=== PATIENT | female | born 1955 | race Caucasian/White ===

== ENCOUNTER 2018-02-07 17:28 | Emergency (ER) | payer OTHER ==
[~2018-02-07] VITALS: Ht 172.7 cm; Wt 90.5 kg
[2018-02-07 17:34] VITALS: BP 152/86; PULSE 82; RESP 18; TEMP 98.6; O2SAT 100
[2018-02-07] MEDS ORDERED: SIMV10TA PO (18:26)
[2018-02-07] MEDS ORDERED: LISI10TA3 PO (18:26)
[2018-02-07] MEDS ORDERED: ACETAMINOPHEN 325 MG TAB PO ONE (19:15)
--- NOTE | 2018-02-07 19:30 | RADRPT ---
EXAM DATE/TIME: 02/07/2018 19:16 [facility] COMPARISON: No previous studies available for comparison. INDICATIONS : Fall landed on left elbow. MEDICAL HISTORY : None. SURGICAL HISTORY : None. ENCOUNTER: Initial ACUITY: 1 day PAIN SCORE: 4/10 LOCATION: Left elbow FINDINGS: Two view examination of the left elbow demonstrates no soft tissue swelling, joint effusion, fracture or dislocation. Bony mineralization is normal. CONCLUSION: No evidence of fracture or subluxation of the left elbow. Des Salazar MD on February 07, 2018 at 19:27 Board Certified Radiologist. This report was verified electronically.
--- NOTE | 2018-02-07 19:34 | PD ---
HPI Chief Complaint: Fall Time Seen by Provider: 19:06 Travel History International Travel<30 days: No Contact w/Intl Traveler<30days: No Traveled to known affect area: No History of Present Illness HPI The patient is a 62-year-old female who presents to the emergency department after trip and fall. The patient was walking on a sidewalk earlier today, which she lost her balance and stepped off the side of the sidewalk, falling forward. The patient states she struck both knees, her left elbow, and her face on the ground. She denies any loss of consciousness but does note abrasions to the frontal forehead, nose, and upper lip. She also complains of abrasions to the knees and some left elbow pain. The pain of the left elbow is worse with movement, alleviated at rest. She notes minimal pain of the abrasions of the knees, however, is able to ambulate without difficulty. She denied any LOC with the fall, however, does complain of mild headache and frontal facial pain just under the eyes. The patient states her tetanus shot is up-to-date. She does complain of numbness and tingling to the upper mouth and upper teeth without missing any dentition. She denies taking any anticoagulants. She denies any neck pain, chest pain, shortness breath, nausea , vomiting, or abdominal pain. PFSH Past Medical History High Cholesterol: Yes Hypertension: Yes Tetanus Vaccination: < 5 Years Influenza Vaccination: Yes ?: Not Menopausal: Yes Past Surgical History Surgical History: No Previous Surgery Social History Alcohol Use: No Tobacco Use: No Substance Use: No Allergies-Medications (Allergen,Severity, Reaction): Coded Allergies: Sulfa (Sulfonamide Antibiotics) (Verified Allergy, Severe, Anaphylaxis, 02/07/18) Reported Meds & Prescriptions Reported Meds & Active Scripts Active Reported Simvastatin 10 Mg Tab 10 Mg PO DAILY Lisinopril 10 Mg Tab 10 Mg PO DAILY Review of Systems Except as stated in HPI: all other systems reviewed are Neg HENT: Positive: Headaches, Other (Facial pain), No: Neck Pain Cardiovascular: No: Chest Pain or Discomfort Respiratory: No: Shortness of Breath Gastrointestinal: No: Nausea, Vomiting, Abdominal Pain Musculoskeletal: Positive: Pain Skin: Positive Rash (Abrasions) Physical Exam Narrative GENERAL: Awake, alert, pleasant 62-year-old female who appears her stated age and is in no acute respiratory distress. SKIN: Abrasions noted to the knees bilaterally. Abrasion noted over the frontal forehead as well as the bridge of the nose and over the upper lip between the vermilion border and nasal passages. HEAD: Abrasions. EYES: Pupils equal and round. Pupils are 4 mm bilateral and reactive. EOMs are intact. ENT: No nasal bleeding or discharge. Mucous membranes pink and moist. No visible medicine dentition. No visible loose teeth, mild tenderness over the upper incisors of tooth #8 and 9, but not loose upon palpation. No visible bleeding. Patient is able to align her teeth and move her jaw to left and right without difficulty. NECK: Trachea midline. No JVD. No cervical vertebral tenderness. CARDIOVASCULAR: Regular rate and rhythm. No murmur appreciated. RESPIRATORY: No accessory muscle use. Clear to auscultation. Breath sounds equal bilaterally. GASTROINTESTINAL: Abdomen soft, non-tender, nondistended. Intrinsic hand muscles are intact. Mild tenderness of the posterior aspect of the elbow. No obvious deformity. Abrasions noted over the anterior aspect of the patella bilaterally, however, patient is able flex and extend the knees bilateral with strength 5/5 and is able to ablate without difficulty. NEUROLOGICAL: Awake and alert. No obvious cranial nerve deficits. Motor grossly within normal limits. Normal speech. Nonfocal. Oriented 4. Follows commands without difficulty. PSYCHIATRIC: Appropriate mood and affect; insight and judgment normal. Data Data Last Documented VS Vital Signs Date Time Temp Pulse Resp B/P (MAP) Pulse Ox O2 Delivery O2 Flow Rate FiO2 02/07/18 17:34 98.6 82 18 152/86 (108) [address] Facial Bones W/O Iv Cont (02/07/18 ) Ct Brain W/O Iv Contrast(Rout) (02/07/18 ) Elbow, Limited (Ap&Lat) (02/07/18 ) Acetaminophen (Tylenol) (02/07/18 19:15) MDM Medical Decision Making Medical Screen Exam Complete: Yes Emergency Medical Condition: Yes Medical Record Reviewed: Yes Interpretation(s) Last Impressions Maxillofacial CT 02/07/18 0000 Signed Impressions: Service Date/Time: Wednesday, February 07, 2018 19:36 - CONCLUSION: Intact facial bones. Des Salazar MD Head CT 02/07/18 0000 Signed Impressions: Service Date/Time: Wednesday, February 07, 2018 19:36 - CONCLUSION: Negative noncontrast head CT. Des Salazar MD Elbow X-Ray 02/07/18 0000 Signed Impressions: Service Date/Time: Wednesday, February 07, 2018 19:16 - CONCLUSION: No evidence of fracture or subluxation of the left elbow. Des Salazar MD Differential Diagnosis Differential diagnosis includes mechanical fall, abrasion, closed head injury, cranial hemorrhage, facial fracture, dental fracture, elbow fracture, sprain, strain, hematoma, contusion. Narrative Course CT of the brain and facial bones was obtained. X-ray of the left elbow was obtained. The patient was administered Tylenol [address] mg [address] the brain is unremarkable, no evidence of hemorrhage. CT the facial bones reveals no fracture. X-ray of the left elbow is unremarkable. The patient is advised to clean the abrasions twice a day with soap and water, apply Polysporin, watch for signs of infection. Tylenol as needed for pain. She will be provided a copy of her x-ray results and CT results at discharge. She is advised to follow -up with her primary physician. Return if symptoms worsen or progress. Diagnosis Primary Impression: Facial abrasion Qualified Codes: S00.81XA - Abrasion of other part of head, initial encounter Additional Impressions: Left elbow pain Abrasion of knee, bilateral Closed head injury Qualified Codes: S09.90XA - Unspecified injury of head, initial encounter Patient Instructions: General Instructions Additional Instructions: Please provide the patient a copy of her CT results and lab results at discharge. Tylenol as needed for pain. Clean the abrasions twice a day with soap and water and apply Polysporin. Follow-up with your primary physician. Return if symptoms worsen or progress. Disposition: 01 DISCHARGE HOME Condition: Stable Praful Cerrato MD Feb 07, 2018 19:34
--- NOTE | 2018-02-07 19:48 | RADRPT ---
EXAM DATE/TIME: 02/07/2018 19:36 [facility] COMPARISON: No previous studies available for comparison. INDICATIONS : Trauma, trip and fall. RADIATION DOSE: 34.94 CTDIvol (mGy) MEDICAL HISTORY : Hypertension. SURGICAL HISTORY : None. ENCOUNTER: Initial ACUITY: 1 day PAIN SCALE: 5/10 LOCATION: cranial TECHNIQUE: Multiple contiguous axial images were obtained of the head. Using automated exposure control and adj ustment of the mA and/or kV according to patient size, radiation dose was kept as low as reasonably a chievable to obtain optimal diagnostic quality images. DICOM format image data is available electro nically for review and comparison. FINDINGS: CEREBRUM: The ventricles are normal for age. No evidence of midline shift, mass lesion, hemorrhage or acute in farction. No extra-axial fluid collections are seen. POSTERIOR FOSSA: The cerebellum and brainstem are intact. The 4th ventricle is midline. The cerebellopontine angle i s unremarkable. EXTRACRANIAL: The visualized portion of the orbits is intact. SKULL: The calvaria is intact. No evidence of skull fracture. CONCLUSION: Negative noncontrast head CT. Des Salazar MD on February 07, 2018 at 19:45 Board Certified Radiologist. This report was verified electronically.
--- NOTE | 2018-02-07 19:50 | RADRPT ---
EXAM DATE/TIME: 02/07/2018 19:36 [facility] COMPARISON: No previous studies available for comparison. INDICATIONS : Trauma, trip and fall. RADIATION DOSE: 43.73 CTDIvol (mGy) MEDICAL HISTORY : Hypertension. SURGICAL HISTORY : Retinal surgery right eye. ENCOUNTER: Initial ACUITY: 1 day PAIN SCORE: 5/10 LOCATION: facial TECHNIQUE: Volumetric scanning of the facial bones was performed. Using automated exposure control and adjustme nt of the mA and/or kV according to patient size, radiation dose was kept as low as reasonably achiev able to obtain optimal diagnostic quality images. DICOM format image data is available [employer] for review and comparison. FINDINGS: ORBITS: The orbital and infraorbital osseous structures are intact. The retroconal structures have a normal configuration. No radiopaque foreign bodies are seen. NASAL BONE: The nasal bone and maxillary spine are intact ZYGOMATIC ARCHES: Symmetric without evidence of fracture. SINUSES: The maxillary, ethmoid and frontal sinuses are intact. No air-fluid levels seen. NASAL CAVITY: The nasal septum is intact and midline. The lacrimal ducts are intact. SOFT TISSUES: No radiopaque foreign bodies seen. No soft-tissue swelling is seen. INTRACRANIAL: No intracranial air seen. CRIBIFORM PLATE: Grossly intact. CONCLUSION: Intact facial bones. Des Salazar MD on February 07, 2018 at 19:46 Board Certified Radiologist. This report was verified electronically.
== END 2018-02-07 21:11 | disposition home or self-care (01) ==
LOC: NEPD 17:28
DX: S00.81XA Abrasion of other part of head, initial encounter (principal); S80.211A Abrasion, right knee, initial encounter; S80.212A Abrasion, left knee, initial encounter; M25.522 Pain in left elbow; W01.0XXA Fall on same level from slipping, tripping and stumbling without subsequent striking against object, initial encounter; Y93.01 Activity, walking, marching and hiking; Y92.480 Sidewalk as the place of occurrence of the external cause
CPT/HCPCS: 70450; 70486; 73070; 99284